=== PATIENT | female | born 1990 | race Caucasian/White ===

== ENCOUNTER → 2017-01-18 | Outpatient (REF) | payer SELFPAY | LOC: M LAB REF 09:03 | PROVIDERS: ATTEND Physician Assistant Medical | DX: N39.0 Urinary tract infection, site not specified (principal) ==

== ENCOUNTER → 2017-02-19 | Outpatient (REF) | payer OTHER | LOC: M SFHCWAGY 13:37 | PROVIDERS: ATTEND Nurse Practitioner Women's Health | DX: Z31.69 Encounter for other general counseling and advice on procreation (principal); Z86.19 Personal history of other infectious and parasitic diseases ==

== ENCOUNTER → 2017-04-30 | Outpatient (REF) | payer OTHER | LOC: M LAB REF 09:00 | PROVIDERS: ATTEND Physician Assistant | DX: R19.7 Diarrhea, unspecified (principal); J02.9 Acute pharyngitis, unspecified ==